=== PATIENT | female | born 1925 | race Caucasian/White ===

== ENCOUNTER 2016-12-08 17:41 | Inpatient (IN) | payer MEDICARE ==
--- NOTE | ~2016-12-08 | EKG ---
PATIENT: MICHELLE ROBERTS UNIT #: [id number] Ventricular Rate: 64 BPM Atrial Rate: 64 BPM P-R Interval: 214 ms QRS Duration: 94 ms Q-T Interval: 460 ms QTC Calculation(Bezet): 474 ms P [place]: 86 degrees Calculated R [place]: -32 degrees Calculated T [place]: 39 degrees Diagnosis Line: Sinus rhythm with 1st degree A-V block Diagnosis Line: Left axis deviation Diagnosis Line: Inferior infarct (cited on or before 17-SEP-2013) Diagnosis Line: Abnormal ECG Diagnosis Line: When compared with ECG of 18-MAY-2016 14:22, Diagnosis Line: No significant change was found Diagnosis Line: Confirmed by SHI MARQUEZ MD ([id number]) on Diagnosis Line: 12/09/2016 4:35:40 PM INTERPRETING MD: ALMA EID
--- NOTE | ~2016-12-08 | HP ---
Unit #: [id number] #: [id number] Patient: MICHELLE ROBERTS [id number] [address] [place], [place] [address] [id number] I MR#: [id number] NAME: MICHELLE ROBERTS. ROOM: 97911 Age: 89 Sex: F Admission Date: 12/08/2016 : 1925 Attending Physician: Amira Rankin M.D. Primary Care Physician: Michael Bergman M.D. HISTORY AND PHYSICAL CHIEF COMPLAINT The abnormal labs. HISTORY OF PRESENT ILLNESS The patient is an 89-year-old female with a history of coronary artery disease status post drug-eluting stent, history of paroxysmal atrial fibrillation on aspirin and Plavix, chronic kidney disease stage 3, who presented to the emergency room with abnormal labs. The patient stated the patient has been coughing with the shortness of breath since Thursday. The patient was seen by the PCP, Dr. Fisher, earlier today and with x-ray concerning for the pneumonia. The patient is sent to the emergency room for further evaluation. The patient had a chest x-ray that shows a bilateral coarse interstitial infiltrate and is being admitted for the pneumonia. The patient also complains of the nausea and denies any vomiting, denies any fever and chills. The patient's daughter is sick with a cold at home. PAST MEDICAL HISTORY History of coronary artery disease, DVT, history of a CVA, hypertension, hyperlipidemia, paroxysmal atrial fibrillation, hypothyroidism, lung nodules, hiatal hernia. PAST SURGICAL HISTORY History of cholecystectomy, cardiac cath, left breast lumpectomy, hysterectomy, right breast lumpectomy, bilateral cataract extraction, upper endoscopy. ALLERGIES Codeine. SOCIAL HISTORY The patient's a year ago and she has been living with her grandchildren, no history of smoking, alcohol or any illicit drugs. FAMILY HISTORY Mother at the age of 99, father at the age of 75 with MIs. HOME MEDICATIONS She is on the baby aspirin, sodium bicarbonate, isosorbide, Lipitor, carvedilol, amiodarone, folic acid, levothyroxine, Plavix and nitroglycerin. REVIEW OF SYMPTOMS Unit #: [id number] #: [id number] Patient: MICHELLE ROBERTS Fourteen-point review of symptoms performed and only pertinent positive findings as described above, remaining are negative. PHYSICAL EXAMINATION GENERAL APPEARANCE: On examination the patient is lying on a bed not in acute distress. VITAL SIGNS: Temperature is 98.4, pulse 56, respiratory rate 18, blood pressure 128/80, sating 98% in the emergency room but patient was 88% at the office. HEENT: Head atraumatic, normocephalic. Pupils equal, round and reacting to light and accommodation. Extraocular movements are intact. LUNGS: Decreased air entry at the bases. Positive for rhonchi. HEART: Irregular rate and rhythm. Positive for murmur. ABDOMEN: Soft. Positive bowel sounds. EXTREMITIES: No cyanosis. No clubbing. NEUROLOGIC: Alert, awake, oriented. No gross focal motor deficit. DIAGNOSTIC STUDIES LABORATORY DATA: Glucose 112, BUN 31, creatinine 2.1, sodium 130, potassium 4.8, chloride 94, bicarb 27, calcium 8.6, total protein 7.6, albumin 2.4, total bilirubin 0.4, AST 38, ALT 44, alkaline phosphatase 108 and BNP is 184, and lactic acid is 0.9, INR is 1, WBC 13.1, hemoglobin 9.9, hematocrit 30.5, platelets 373 and UA is pending. CARDIOVASCULAR: EKG shows sinus rhythm with the first-degree AV block and left axis deviation. IMAGING: Chest x-ray shows bilateral coarse interstitial infiltrate. ASSESSMENT 1. Pneumonia, bilateral. 2. Hyponatremia. 3. Chronic kidney disease with the stage 3. 4. Hypoxia, sats at 88% at room air. PLAN 1. Plan to admit the patient to the inpatient with the telemetry. 2. Continue with the IV antibiotic with Rocephin and Zithromax. 3. Check the sputum culture. 4. Check the urine Strep and Legionella antigen. 5. Continue with gentle fluid, 60 mL per hour normal saline for 10 hours and repeat labs again in the morning and further recommendations will follow. Dictated by Emmanuel Servin TD: 12/08/2016 20:23 JOB #: [id number] Unit #: [id number] #: [id number] Patient: MICHELLE ROBERTS Melisa HISTORY AND PHYSICAL Page 1 of 1 X X HISTORY AND PHYSICAL
--- NOTE | ~2016-12-08 | CR72 ---
[facility] A Service of [facility] & [facility] RADIOLOGY TEXT RESULTS PATIENT: MICHELLE ROBERTS LOCATION: [facility] 301- : [birth year] UNIT #: [id number] AGE: [address]: Dev Willett MD SEX: F ORDER DR: [id number] [facility] [address] [place], [place] [address] [id number] I MR#: [id number] Acc #: [id number] NAME: MICHELLE ROBERTS. : 1925 SEX: F STUDY DATE/TIME: 12/08/2016 17:27 [facility]123 STUDY DESCRIPTION: CR Chest Single View Portable Attending Physician: Amira Rankin M.D. Ordering Physician: Aarti Campuzano M.D. Primary Care Physician: Michael Bergman M.D. MEDICAL IMAGING REPORT This report is preliminary unless electronic signature is present EXAM Portable chest HISTORY Cough and shortness of air congestion for 3 days. FINDINGS Moderate diffuse bilateral coarse interstitial infiltrates appear increased compared to earlier today. No new focal pulmonary infiltrates. Cardiac and mediastinal contours are stable. Dictated by... Ignacio Gonsalez M.D. THIS IS AN ELECTRONICALLY VERIFIED REPORT Ignacio Gonsalez M.D. at 12/09/2016 2:40 PM ABBIE/jonna TD: 12/08/2016 21:00 JOB #: [id number] MEDICAL IMAGING REPORT Page 1 of 1 COPY
--- NOTE | ~2016-12-08 | DS ---
Unit #: [id number] #: [id number] Patient: MICHELLE ROBERTS [id number] [address] [place], [place] [address] [id number] I MR#: [id number] NAME: MICHELLE ROBERTS. ROOM: 301 Age: 89 Sex: F Admission Date: 12/08/2016 : 1925 Discharge Date: 12/11/2016 Attending Physician: Beltran Finnegan M.D. Primary Care Physician: Michael Bergman M.D. DISCHARGE SUMMARY ADMITTING DIAGNOSES 1. Community-acquired pneumonia. 2. History of coronary artery disease. 3. History of atrial fibrillation on aspirin and Plavix. 4. Chronic kidney disease stage 3. DISCHARGE DIAGNOSES 1. Community-acquired pneumonia. 2. History of coronary artery disease. 3. History of atrial fibrillation on aspirin and Plavix. 4. Chronic kidney disease stage 3. HISTORY OF PRESENT ILLNESS The patient is a pleasant 89-year-old lady who lives at home with her granddaughter with multiple medical problems including coronary artery disease status post stent, paroxysmal atrial fibrillation, chronic kidney disease who presented to the emergency room with a chief complaint of cough and shortness of breath. She initially had a chest x-ray which was concerning for an infiltrate and for further evaluation, she was admitted here. Apparently, her daughter is sick and patient had a sick contact at home. HOSPITAL COURSE She was started on antimicrobial agents including Rocephin and Zithromax. Clinically, she started to feel better. We offered her to go to rehab. The patient refused. Her renal function is at her baseline and we are requesting her to follow with nephrology as an outpatient. Dr. Hamilton is her die maker trim. Her atrial fibrillation is rate controlled. Today, I spoke with patient and her granddaughter in the room. She is eager to go home and does not want (1) . PHYSICAL EXAMINATION On the day of the discharge, her physical examination: VITAL SIGNS: Temperature 98.2, pulse rate 60, respirations 16, blood pressure 108/52. GENERAL: Patient is alert, oriented x3, lying in the bed in no acute distress. HEENT: Normocephalic and atraumatic. No icterus. PERRLA. Extraocular muscles intact. NECK: Supple. No JVD. HEART: S1, S2. Irregular. CHEST: Bilateral equal air entry. Clear to auscultation. ABDOMEN: Soft, nontender. EXTREMITIES: No edema. Normal peripheral pulses. Unit #: [id number] #: [id number] Patient: MICHELLE ROBERTS DISCHARGE MEDICATIONS 1. Zithromax 250 mg p.o. daily for three more days. 2. Albuterol 90 mcg inhalation one to two puffs q.4-6 p.r.n. for shortness of breath. 3. Sodium bicarbonate 650 mg p.o. three times a day. 4. Amiodarone 200 mg p.o. daily. 5. Coreg 6.25 mg twice a day. 6. Lipitor 10 mg at bedtime. 7. Aspirin 81 mg daily. 8. Plavix 75 mg daily. 9. Synthroid 75 mcg p.o. daily. 10. Imdur 30 mg p.o. daily. 11. Nitroglycerin 0.4 mg sublingual p.r.n. for chest pain. 12. Folic acid 1 mg p.o. daily. FOLLOWUP She is instructed to follow with her primary care, nephrology, and cardiology as an outpatient. Total time spent in her care, 35 minutes. Dictated by... Beltran Finnegan M.D. Сергей TD: 12/13/2016 10:51 JOB #: [id number] DISCHARGE SUMMARY Page 1 of 1 X X DISCHARGE SUMMARY
[2016-12-08 17:28] LABS: BASOPHIL# 0.1 X10e3 (0-0.3); BASOPHIL% 0.7 % (0-2.5); EOSINOPHIL# 0.2 X10e3 (0-0.7); EOSINOPHIL% 1.8 % (0.0-7.0); HEMATOCRIT 30.5 % (35.0-45.0); HEMOGLOBIN 9.9 gm/dL (12.0-16.0); LYMPHOCYTE# 5.2 X10e3 (1.0-3.5); LYMPHOCYTE% 39.5 % (17.0-45.0); MEAN CELL VOLUME 93.1 FL (83-96); MEAN CORPUSCULAR HEMOGLOBIN 30.3 PG (28-34); MEAN CORPUSCULAR HGB CONC 32.6 g/dL (30-36); MEAN PLATELET VOLUME 7.2 FL (6.5-11.5); MONOCYTE# 1.3 X10e3 (0-1.0); MONOCYTE% 9.7 % (3.0-12.0); NEUTROPHIL# 6.3 X10e3 (1.5-7.1); NEUTROPHIL% 48.3 % (40-75); PLATELET COUNT 373 X10e3 (140-420); RED BLOOD COUNT 3.28 X10e (3.90-5.30); RED CELL DISTRIBUTION WIDTH 13.6 % (11.0-15.5); WHITE BLOOD COUNT 13.1 X10e3 (4.0-10.5)
[2016-12-08 17:30] LABS: DIFF IND NO
[2016-12-08 17:41] LABS: PARTIAL THROMBOPLASTIN TIME 24.9 SECONDS (23.5-31.3); PROTHROMBIN TIME (PATIENT) 10.6 SECONDS (9.6-11.5)
[~2016-12-08 17:41] MED LIST: ACETAMINOPHEN325 MG PO; AMIODARONE PO; ANTACID650 MG PO; ASPIRIN81 M1 PO; ASPIRIN81 M2 PO; ASPIRIN81 MG PO; ATORVASTATIN CA10 MG PO; AZITHROMYCIN500 MG PO; B-121000 MC1 SUBQ; B-121000 MC3 PO; BAYER CHEWABLE81 MG PO; CLOPIDOGREL75 MG PO; CORDARONE200 M1 PO; COREG3.125 M1 PO; COREG3.125 MG PO; COUMADIN1 MG PO; COUMADIN2.5 MG PO; DIGOX0.125 MG PO; DIGOXIN125 MCG PO; EVISTA60 M1 PO; FERROUS GL324 ( 38 ) PO; FLORINEF0.1 MG PO; FOLIC ACID1 MG PO; IMDUR-ER30 M2 PO; IRON1 TAB PO; IRON325 ( 651 PO; ISOSORBIDE DINI30 MG PO; LASIX PO; LASIX20 MG PO; LEVOTHYROXINE75 MC1 PO; LEVOTHYROXINE75 MCG PO; LISINOPRIL20 MG PO; LOVENOX40 MG/0.4 INJ; LOW DOSE ASPIRI81 M1 PO; METOPROLOL SUCC25 MG PO; METOPROLOL TAR25 MG PO; METOPROLOL TART25 MG PO; NITROGLYGERIN0.4 MG SL; NITROSTAT0.4 MG SL; OMNICEF PO; PANTOPRAZOLE SO40 MG PO; PLAVIX PO; PRAVASTATIN SOD40 MG PO; PROAMATINE10 MG PO; PROTONIX PO; SENNA8.6 M2 PO; SODIUM BICARBO650 MG PO; SYNTHROID75 MCG PO; TYLENOL325 M1 PO; VITAMIN B12-FO1 EACH PO; XARELTO15 MG PO
[2016-12-08 17:55] LABS: ALBUMIN SERUM 2.4 g/dL (3.5-5.0); BILIRUBIN, DIRECT 0.1 mg/dL (0.0-0.2); BILIRUBIN,INDIRECT 0.3 mg/dL (0.0-0.9); BILIRUBIN,TOTAL 0.4 mg/dL (0.2-2.0); BUN/CREATININE RATIO 14.76; CALCIUM SERUM 8.6 mg/dL (8.4-10.2); CREATININE SERUM 2.1 mg/dL (0.6-1.4); GLOM FILT RATE Estimated 20.4 mL/min (>60); POTASSIUM 4.8 mmol/L (3.5-5.1); PROTEIN TOTAL SERUM 7.6 g/dL (6.0-8.3)
[2016-12-08 20:03] LABS: URINE SOURCE CLEAN CATCH
[2016-12-08 20:16] LABS: URINE APPEARANCE CLEAR; URINE BLOOD NEG (NEG); URINE COLOR DK YELLOW; URINE GLUCOSE NEG (NEG); URINE KETONE TRACE (NEG); URINE LEUKOCYTE ESTERASE 2+ (NEG); URINE NITRATE NEG (NEG); URINE PROTEIN 1+ (NEG); URINE SPECIFIC GRAVITY 1.022 (1.003-1.035)
[2016-12-08 20:19] LABS: CULTURE INDICATED? YES; URINE BACTERIA AUWI NEG (NEGATIVE); URINE SQUAMOUS EPITHELIAL CELL NONE SEEN /[HPF]; UWBCS1 AUWI 50-100 (0-5)
[2016-12-08 20:21] LABS: URINE BILIRUBIN NEG (NEG)
[2016-12-08] MEDS ORDERED: SODIUM BICARBO650 MG PO (22:01)
[2016-12-08] MEDS ORDERED: CLOPIDOGREL75 MG PO (22:02)
[2016-12-08] MEDS ORDERED: NITROGLYCERIN0.4 MG SL (22:03)
[2016-12-09 04:59] LABS: HEMATOCRIT 29.9 % (35.0-45.0); HEMOGLOBIN 9.8 gm/dL (12.0-16.0); MEAN CELL VOLUME 93.6 FL (83-96); MEAN CORPUSCULAR HEMOGLOBIN 30.8 PG (28-34); MEAN CORPUSCULAR HGB CONC 32.9 g/dL (30-36); MEAN PLATELET VOLUME 7.4 FL (6.5-11.5); RED BLOOD COUNT 3.19 X10e (3.90-5.30); RED CELL DISTRIBUTION WIDTH 13.9 % (11.0-15.5); WHITE BLOOD COUNT 10.8 X10e3 (4.0-10.5)
[2016-12-09 06:32] LABS: CALCIUM SERUM 8.2 mg/dL (8.4-10.2); CREATININE SERUM 1.8 mg/dL (0.6-1.4); GLOM FILT RATE Estimated 24.5 mL/min (>60); POTASSIUM 4.5 mmol/L (3.5-5.1)
[2016-12-09 10:11] LABS: LEGIONELLA AG URINE NEG (NEG)
[2016-12-10 07:19] LABS: HEMATOCRIT 29.8 % (35.0-45.0); HEMOGLOBIN 9.8 gm/dL (12.0-16.0); MEAN CELL VOLUME 93.1 FL (83-96); MEAN CORPUSCULAR HEMOGLOBIN 30.5 PG (28-34); MEAN CORPUSCULAR HGB CONC 32.8 g/dL (30-36); MEAN PLATELET VOLUME 7.1 FL (6.5-11.5); RED BLOOD COUNT 3.2 X10e (3.90-5.30); RED CELL DISTRIBUTION WIDTH 13.5 % (11.0-15.5); WHITE BLOOD COUNT 13.6 X10e3 (4.0-10.5)
[2016-12-10 07:46] LABS: BUN/CREATININE RATIO 13.88; CALCIUM SERUM 8.1 mg/dL (8.4-10.2); CREATININE SERUM 1.8 mg/dL (0.6-1.4); GLOM FILT RATE Estimated 24.5 mL/min (>60); POTASSIUM 4.2 mmol/L (3.5-5.1)
[2016-12-10 07:55] LABS: PROCALCITONIN 0.15 NG/ML
[2016-12-11 06:11] LABS: HEMATOCRIT 27.3 % (35.0-45.0); HEMOGLOBIN 9.1 gm/dL (12.0-16.0); MEAN CELL VOLUME 92.7 FL (83-96); MEAN CORPUSCULAR HGB CONC 33.4 g/dL (30-36); MEAN PLATELET VOLUME 7.4 FL (6.5-11.5); RED BLOOD COUNT 2.94 X10e (3.90-5.30); RED CELL DISTRIBUTION WIDTH 13.7 % (11.0-15.5); WHITE BLOOD COUNT 8.8 X10e3 (4.0-10.5)
[2016-12-11 07:03] LABS: BUN/CREATININE RATIO 13.68; CALCIUM SERUM 8.3 mg/dL (8.4-10.2); CREATININE SERUM 1.9 mg/dL (0.6-1.4); POTASSIUM 4.1 mmol/L (3.5-5.1)
[2016-12-11] MEDS ORDERED: AZITHROMYCIN250 MG PO (16:16)
[2016-12-11] MEDS ORDERED: PROAIR RESPICL90 MCG INH (16:17)
== END 2016-12-11 17:07 | disposition home health service (06) | DRG 193 ==
LOC: CED 17:41 → CEDOF 19:03 → C3A PCU 21:51
PROVIDERS: Emergency Medicine; Internal Medicine
DX: J18.9 Pneumonia, unspecified organism (principal); J96.01 Acute respiratory failure with hypoxia; E87.1 Hypo-osmolality and hyponatremia; I48.0 Paroxysmal atrial fibrillation; N18.3 Chronic kidney disease, stage 3 (moderate); Z90.49 Acquired absence of other specified parts of digestive tract; Z90.710 Acquired absence of both cervix and uterus; Z86.718 Personal history of other venous thrombosis and embolism; E78.5 Hyperlipidemia, unspecified; I25.10 Atherosclerotic heart disease of native coronary artery without angina pectoris; E03.9 Hypothyroidism, unspecified; Z86.73 Personal history of transient ischemic attack (TIA), and cerebral infarction without residual deficits; Z98.42 Cataract extraction status, left eye; Z98.41 Cataract extraction status, right eye; Z88.5 Allergy status to narcotic agent; I12.9 Hypertensive chronic kidney disease with stage 1 through stage 4 chronic kidney disease, or unspecified chronic kidney disease; Z95.5 Presence of coronary angioplasty implant and graft
CPT/HCPCS: 36415; 71010; 80048; 80076; 81003; 82308; 83605; 83880; 85025; 85027; 85610; 85730; 87040; 87086; 87449; 87899; 92526; 92610; 93005; 94640; 94760; 96365; 99285; G8996-GN; G8997-GN; G8998-GN; J0456; J0696; J1650

== ENCOUNTER 2017-01-08 13:56 | Observation (INO) | payer MEDICARE ==
--- NOTE | ~2017-01-08 | MR18 ---
[facility] A Service of [facility] & [facility] RADIOLOGY TEXT RESULTS PATIENT: MICHELLE ROBERTS LOCATION: [facility] 335- : [birth year] UNIT #: [id number] AGE: [address]: ALICIA RANKIN MD SEX: F ORDER DR: [id number] [facility] [address] [place], [place] [address] [id number] I MR#: [id number] Acc #: [id number] NAME: MICHELLE ROBERTS. : 1925 SEX: F STUDY DATE/TIME: 01/08/2017 20:42 UNIT: A U ROOM: [facility] STUDY DESCRIPTION: MR Brain Wo Contrast Attending Physician: Alicia Rankin M.D. Ordering Physician: Physician Non-Staff Primary Care Physician: Michael Bergman M.D. MRI CENTER REPORT This report is preliminary unless electronic signature is present. EXAM MRI of the brain without HISTORY TIA. Patient fell this morning after becoming weak. She was assisted to the ground. History of previous stroke, but no history of cancer. COMMENT MRI of the brain was performed without contrast using routine 1.5T imaging technique. Comparison head CT is from 01/08/2017. There is no evidence for a recent ischemic insult on the diffusion series. Probably old blood product deposition at the left basal ganglia anteriorly. No recent intracranial hemorrhage is suspected. There is extensive white matter disease probably due to small vessel disease, and there are a few small areas of cortical signal abnormality probably also due to prior ischemic insult in light of the constellation of findings. These small cortical areas are seen in the left posterior frontal lobe predominantly. There is generalized atrophy. There is fluid or inflammatory change in the mastoid air cells bilaterally. Major intracranial flow voids are maintained. Vertebrobasilar system is somewhat small and there is probably an anterior-dominant circulation developmentally. There is no extraaxial fluid collection or intracranial mass effect. There is near-complete opacification of the left maxillary sinus, with evidence of chronic osteitis appreciated on the CT scan. There is partial opacification of left greater than right-sided ethmoid air cells and polypoid mucosal disease in the right maxillary sinus. Probably both acute and chronic sinusitis present. Patient has had cataract surgery bilaterally. There is some flattening of the right posterolateral margin of the globe, also apparent on the CT scan of uncertain significance clinically. Please correlate with ophthalmologic exam and history. [facility] A Service of [facility] / [facility] RADIOLOGY TEXT RESULTS PATIENT: MICHELLE ROBERTS LOCATION: [facility] 335- : [birth year] UNIT #: [id number] AGE: [address]: ALICIA RANKIN MD SEX: F ORDER DR: Old lacunar disease in the cerebellum on the right. IMPRESSION 1. There is no evidence for a recent ischemic insult on the diffusion imaging. 2. There is atrophy and extensive probable sequelae of small vessel disease. 3. There is fluid or inflammatory change in the mastoid air cells. 4. Paranasal sinus disease including near-complete opacification of the left maxillary sinus with evidence of chronic osteitis/chronic sinusitis. I suspect there are components of both acute and chronic sinusitis present. See above. STAT * RESULT Dictated by... Taya Odonnell M.D. THIS IS AN ELECTRONICALLY VERIFIED REPORT Taya Odonnell M.D. at 01/08/2017 10:35 PM SAC/psc TD: 01/08/2017 22:11 JOB #: [id number] MRI CENTER REPORT Page 1 of 1 COPY
--- NOTE | ~2017-01-08 | EKG ---
PATIENT: MICHELLE ROBERTS UNIT #: [id number] Ventricular Rate: 48 BPM Atrial Rate: 48 BPM P-R Interval: 210 ms QRS Duration: 90 ms Q-T Interval: 504 ms QTC Calculation(Bezet): 450 ms Calculated R [place]: -27 degrees Calculated T [place]: 32 degrees Diagnosis Line: Sinus bradycardia with 1st degree A-V block Diagnosis Line: Borderline ECG Diagnosis Line: When compared with ECG of 08-DEC-2016 17:16, Diagnosis Line: No significant change was found Diagnosis Line: Confirmed by SVETLANA LUBIN MD ([id number]) on Diagnosis Line: 01/10/2017 1:08:51 PM INTERPRETING MD: BROOKE
--- NOTE | ~2017-01-08 | CR72 ---
[facility] A Service of [facility] & [facility] RADIOLOGY TEXT RESULTS PATIENT: MICHELLE ROBERTS LOCATION: [place] [address] : [birth year] UNIT #: [id number] AGE: [address]: Natacha Corrales MD SEX: F ORDER DR: [id number] [facility] [address] [place], [place] [address] [id number] E MR#: [id number] Acc #: [id number] NAME: MICHELLE ROBERTS. : 1925 SEX: F STUDY DATE/TIME: 01/08/2017 14:30 UNIT: [facility] ROOM: STUDY DESCRIPTION: CR Chest Single View Portable Attending Physician: Richie Cuevas M.D. Ordering Physician: Richie Cuevas M.D. Primary Care Physician: Michael Bergman M.D. MEDICAL IMAGING REPORT This report is preliminary unless electronic signature is present EXAM Portable chest HISTORY SUPPLIED Right-sided weakness, shortness of breath. FINDINGS AP portable view is obtained. Heart size is mildly enlarged. Lungs show evidence of chronic interstitial lung disease. No acute infiltrates are suspected. There is marked apical pleural thickening and there extensive granulomatous calcifications. CONCLUSION 1. Mild cardiac enlargement 2. Marked chronic interstitial lung disease Dictated by... Timoteo Mckenzie M.D. THIS IS AN ELECTRONICALLY VERIFIED REPORT Timoteo Mckenzie M.D. at 01/09/2017 6:06 PM GISELA/jonathan TD: 01/08/2017 17:41 JOB #: [id number] MEDICAL IMAGING REPORT Page 1 of 1 COPY
--- NOTE | ~2017-01-08 | DS ---
Unit #: [id number] #: [id number] Patient: MICHELLE ROBERTS [id number] [address] [facility]. [place], [place] [address] [id number] I MR#: [id number] NAME: MICHELLE ROBERTS. ROOM: 335 Age: 89 Sex: F Admission Date: 01/08/2017 : 1925 Discharge Date: 01/09/2017 Attending Physician: Natacha Corrales M.D. Primary Care Physician: Michael Bergman M.D. DISCHARGE SUMMARY HOSPITAL COURSE An 89-year-old female who was admitted to [facility] with right-sided weakness, which was resolved by the time she was seen in the emergency room. Details are as per admission H and P. Patient was seen by Dr. Eden in neurology consultation. She had a MRI of brain done, which did not reveal any evidence of acute ischemic insult. There was atrophy present and small vessel disease. Chest x-ray was also done which did reveal marked chronic interstitial lung disease. Patient's urinalysis has revealed 5-10 WBCs. Therefore, it was thought that patient has a TIA. The patient has been on Coumadin in past which was discontinued because of falls and bleeding, but patient had sinus bradycardia. After discussing with cardiology and neurology, it was decided to start patient on Eliquis 2.5 mg p.o. b.i.d. Patient was advised to follow further on outpatient basis. The patient's aspirin and Plavix were discontinued. Today patient is comfortable, is not in any acute distress. She will be discharged home. RECOMMENDATIONS ON DISCHARGE Condition is stable. Activity is as tolerated. MEDICATIONS 1. Albuterol MDI two puffs q.4 hours p.r.n. 2. Sodium bicarbonate 650 mg p.o. t.i.d. with meals. 3. Tylenol 650 mg p.o. q.6 hours p.r.n. 4. Megace 40 mg p.o. b.i.d. 5. Colace 100 mg p.o. daily p.r.n. 6. Lipitor 10 mg p.o. nightly. 7. Enteric coated aspirin 81 mg p.o. daily. 8. Synthroid 100 mcg p.o. daily. 9. Imdur 30 mg p.o. daily. 10. Folic acid 1 mg p.o. daily. 11. Keflex 250 mg p.o. b.i.d. for one week for urinary tract infection. DISPOSITION Patient will be discharged home. FOLLOWUP Follow with primary care physician in one week and have CBC and BMP done and with cardiology as recommended. The patient is advised to follow up with Dr. Peter Reyna in neurology in four weeks. Home health is advised to follow up regarding home PT/OT and home safety assessment. The plan has been discussed in detail with cardiology and neurology. The plan was also discussed with patient's granddaughter who stated that she feels Unit #: [id number] #: [id number] Patient: MICHELLE ROBERTS comfortable to bring patient home. Dictated by... Emmanuel Mondragon/stephane TD: 01/09/2017 15:11 JOB #: [id number] CC: Peter Reyna II., M.D. Michael Becker, M.D. Preeti Attavar, M.D. DISCHARGE SUMMARY Page 1 of 1 X Natacha Corrales MD X DISCHARGE SUMMARY
--- NOTE | ~2017-01-08 | CO ---
Unit #: [id number] #: [id number] Patient: MICHELLE ROBERTS [id number] [address] [place], [place] [address] [id number] I MR#: [id number] NAME: MICHELLE ROBERTS. ROOM: 335 Age: 89 Sex: F Admission Date: 01/08/2017 : 1925 Attending Physician: Natacha Corrales M.D. Primary Care Physician: Michael Bergman M.D. Consultation Date: 01/09/2017 CONSULTATION REPORT REASON FOR CONSULTATION Bradycardia. HISTORY OF PRESENT ILLNESS This is an 86-year-old female known to Dr. Delcid with a prior medical history of coronary artery disease, status post PTCA and drug-eluting stents to LAD and RCA in August 2012 and cardiac cath done in November 2012 showed patent stents, a normal left circumflex, and 75% to 80% ramus intermedius branch occlusion. It was decided to proceed with medical management. In addition, she has a history of hypertension and hyperlipidemia, paroxysmal afib, chronic kidney disease, DVT, questionable CVA in 2009, and hypothyroidism. She has not been anticoagulated due to her treatment with Plavix and aspirin. The patient lives with her granddaughter, who helps provide her care. While ambulating to the bathroom with assistance she became very weak. Her granddaughter states that the right side of her face began to droop and her legs gave out. Patient was lowered to the floor and EMS was called. In the ER she was found to have bradycardia with a rate of 48 and first-degree AV block. CT of the head showed extensive old lacunar infarcts. Chest x-ray showed mild cardiomegaly with moderate diffuse bilateral infiltrates, consistent with her diagnosis of pneumonia approximately two weeks ago. An MRI of the head showed no recent ischemic events and generalized atrophy ad well as tlqku-xi-qrdykcz sinusitis. We were asked to see her to evaluate her for her bradycardia. The patient's granddaughter states she has been checking her heart rate regularly as well as home health services checking it. The patient's heart rate has been running in the 50s and she has only been receiving her Coreg about once a day because she holds it when her heart rate is less than 60. PAST MEDICAL HISTORY 1. Coronary artery disease, status post PTCA and drug-eluting stent to LAD and RCA in 08/2012. 2. Cardiac catheterization 11/2012 with patent stents, normal left circumflex, 75% to 80% ramus intermedius branch, medical management. 3. Hypertension. 4. Hyperlipidemia. 5. Paroxysmal atrial fibrillation. 6. Chronic kidney disease. 7. History of DVT. 8. History of CVA in 2009. 9. Hypothyroidism. 10. Recent pneumonia approximately two weeks ago. Unit #: [id number] #: [id number] Patient: MICHELLE ROBERTS 11. Lung nodule. 12. Echocardiogram August 2012 showed left ventricular ejection fraction 50% to 55% with left ventricular hypertrophy. 13. Nonsmoker. PAST SURGICAL HISTORY 1. Right and left breast lumpectomy. 2. Hysterectomy. 3. Cataract extraction. 4. Cholecystectomy. 5. Cardiac cath in 2012. SOCIAL HISTORY The patient lives with her granddaughter. She walks with assistance with a walker. She denies a history of illicit drug use or alcohol use, denies smoking. FAMILY HISTORY Mother at age 99. Father at age 75 from a myocardial infarction. ALLERGIES Codeine. HOME MEDICATIONS 1. Plavix 75 mg daily. 2. Aspirin 81 mg daily. 3. Sodium bicarbonate 650 mg t.i.d. 4. Docusate sodium 50 mg daily. 5. Coreg 3.125 mg b.i.d. 6. Albuterol two inhalations q.4-6 h. p.r.n. for shortness of breath. 7. Lipitor 10 mg q.h.s. 8. Synthroid 100 mcg p.o. daily. 9. Isosorbide mononitrate 30 mg p.o. daily. 10. Folic acid 1 mg p.o. daily. 11. Megestrol acetate 40 mg p.o. b.i.d. REVIEW OF SYSTEMS Positive for weakness; otherwise negative except for what was stated in the HPI. PHYSICAL EXAMINATION GENERAL: This is a pleasant, 89-year-old female resting in bed in no acute distress. VITAL SIGNS: Temperature 98.2, heart rate 63, blood pressure 103/53. Height 60 inches. Weight 52 kg. HEENT: Head is atraumatic and normocephalic. Pupils are equal and round. Mucous membranes are moist. NECK: Supple. Trachea is midline. Negative for JVD. LUNGS: Clear, diminished in bases. Nonlabored respirations. CARDIOVASCULAR: S1 and S2. Regular rate and rhythm. No murmurs, rubs or gallops. ABDOMEN: Soft, nontender, nondistended. EXTREMITIES: Pulses are palpable. No pedal edema. No cyanosis. NEUROLOGIC: Awake, alert and oriented x3, without focal weaknesses. DIAGNOSTIC STUDIES LABORATORY RESULTS: Sodium 135, potassium 4.1, chloride 102, BUN 29, Unit #: [id number] #: [id number] Patient: MICHELLE ROBERTS creatinine 2.2, glucose 80, hemoglobin 10.6, hematocrit 32.4, white blood cell count 8.9, platelets 289, PT 10.3, INR 1, point of care troponin less than 0.05. Urine culture is pending. Urine culture showed leukocyte esterase 1+. IMAGING: Chest x-ray showed moderate diffuse bilateral infiltrates with mild cardiomegaly. Head CT showed old lacunar infarcts and generalized atrophy. MRI of the head showed no recent ischemic insults, generalized atrophy, and acute and chronic sinusitis. ASSESSMENT 1. Transient ischemic attack. 2. Sinus bradycardia. 3. Chronic kidney disease. 4. Probable urinary tract infection. 5. History of paroxysmal atrial fibrillation. 6. Hypertension. 7. Hyperlipidemia. 8. Hypothyroidism. 9. History of deep veinous thrombosis. 10. Coronary artery disease, status post percutaneous transluminal coronary angioplasty and drug-eluting stent to left anterior descending and right coronary artery in August 2012 and 75% to 80% to ramus per catheterization November 2012. PLAN 1. We will discontinue Plavix. 2. Start Eliquis 2.5 mg p.o. b.i.d. 3. Twenty-four hour Holter monitor as outpatient to observe for further bradycardia or arrhythmias. 4. Continue to hold beta jf. 5. Check TSH. Thank you for asking us to see this patient. We appreciate the consult. Dictated by... JALEN Carrillo M.D. RB/cf TD: 01/09/2017 15:55 JOB #: [id number] Unit #: [id number] #: [id number] Patient: MICHELLE ROBERTS CONSULTATION REPORT Page 1 of 1 X X CONSULTATION REPORT
--- NOTE | ~2017-01-08 | CO ---
Unit #: [id number] #: [id number] Patient: MICHELLE ROBERTS [id number] [facility] [address] [facility]. [place], [place] [address] [id number] I MR#: [id number] NAME: MICHELLE ROBERTS ROOM: 335 Age: 89 Sex: A Admission Date: 01/08/2017 : 1925 Attending Physician: Natacha Corrales M.D. Primary Care Physician: Michael Bergman M.D. Consultation Date: 01/09/2017 CONSULTATION REPORT REASON FOR CONSULT TIA. PATIENT IDENTIFICATION This is an 89-year-old, right-handed, female evaluated in room 335 at [facility]. SOURCE OF INFORMATION Obtained from the patient, the patient's granddaughter at the bedside, as well as the medical record. Patient is a poor historian. HISTORY OF PRESENT ILLNESS This is an 89-year-old, right-handed, female with a past medical history of CVA in 2009 with reportedly no residual deficit, history of CAD with history of myocardial infarction reportedly in 2016 per the granddaughter and other medical issues as discussed below who presents to [facility] with right-sided weakness and mental status changes. Apparently, the patient was in her usual state of health on the day of admission. She lives with her granddaughter as she has baseline dementia and requires assistance with her normal daily activities of living. Her granddaughter states that she noticed that her right side of her face appeared to be a little bit asymmetric and weak. It looked as though it was drooping a little bit on the right side. She states that the patient had needed to go to the bathroom and she was helping her to get up with her walker to go to the bathroom. She states that this was whenever she noticed the facial drooping. However, the patient was still able to ambulate. She states that the patient was up with her walker and suddenly became weak on the right side. She states that she sort of just froze and on the right side she began to look as though it was "like Jell-O." She states that she was still holding onto the walker with her left hand, but was unable to do anything with her right side. She states that she was able to ease the patient to the floor preventing her from falling or hitting her head. She states that the patient did not lose control of bowel or bladder and actually was complaining of having to go to the bathroom after she was eased down to the floor. She states that the patient looked like she had lost "color" in her face. She states that she checked her vital signs and her heart rate was 52 and her blood pressure was 101/59. Patient does not recall much of what happened, but does have baseline dementia. The granddaughter states that she called EMS and was finally able to get the patient to agree to come to the hospital, though reports she was initially reluctant. She denies any obvious seizure activity and reports, rather, the patient was weak on the right Unit #: [id number] #: [id number] Patient: MICHELLE ROBERTS side as though the right side was "like Jell-O." She states that the patient had a similar episode about a year ago at Dr. Delcid's office in 2016 and about a week later, she had a myocardial infarction and this is reported as per the granddaughter at the bedside, who is her medical POA and primary caregiver. Upon arrival, she had a head CT done that showed no acute intracranial findings. She was found to be bradycardic with a heart rate of 55-56. She had a MRI of the brain done as well that was negative for any acute intracranial abnormality. It does show atrophy with quite extensive probable sequelae of small vessel disease. There is fluid or inflammatory change in the mastoid air cells and paranasal sinus disease including near complete opacification of the left maxillary sinus with evidence of chronic osteitis/chronic sinusitis with possible acute and chronic sinusitis present. Urinalysis did show 1+ leuks and 1+ bacteria with rare squamous cells. She was started on Rocephin and culture is pending. Patient is back to her baseline. Cardiology has evaluated the patient as well and is recommending that she be put on Eliquis given her history of paroxysmal atrial fibrillation and possible new transient ischemic attack. She does have a history of ischemic stroke. Per the patient's daughter, again, she appears to have pretty significant small vessel disease on MR imaging. PAST MEDICAL HISTORY 1. CAD. 2. DVT. 3. CVA in 2009 with reportedly no residual deficit. 4. Hypertension. 5. Hyperlipidemia. 6. Paroxysmal atrial fibrillation. She has been on warfarin in the past and follows with Dr. Delcid's office. Her granddaughter states that she was taken off warfarin when she had her myocardial infarction in 2015 when she had a drug-eluting stent placed and was required to be on aspirin and Plavix combination. She reports that she had trouble maintaining a therapeutic INR on warfarin prior to that and apparently had very labile INRs. 7. Hypothyroidism. 8. Lung nodules. 9. Hiatal hernia. 10. Cholecystectomy. 11. Cardiac catheterization. 12. Left breast lumpectomy. 13. Hysterectomy. 14. Right breast lumpectomy. 15. Bilateral cataract extraction. 16. Upper endoscopy. 17. Chronic kidney disease. Please note the patient's granddaughter states that the patient had a myocardial infarction and drug-eluting stent placed in 2015; however, looking at the records from cardiology, it looks as though this was done in 2012. FAMILY HISTORY Noncontributory given her stated age of 89 years. SOCIAL HISTORY The patient lives with her granddaughter who is she states is her medical Power of [employer] Operator Adjuster. She walks with assistance of a walker. She requires assistance with her normal daily activity of living according to the Unit #: [id number] #: [id number] Patient: MICHELLE ROBERTS granddaughter and actually lives with her. She has no known history of illicit drug use, alcohol abuse, or tobacco use. ALLERGIES Codeine. MEDICATIONS Home medications include: 1. Plavix. 2. Aspirin. 3. Sodium bicarbonate. 4. Docusate sodium. 5. Coreg. 6. Albuterol. 7. Lipitor. 8. Synthroid. 9. Isosorbide mononitrate. 10. Folic acid. 11. Megestrol acetate. REVIEW OF SYSTEMS Fourteen-point review of systems was done and pertinent positives are as discussed above, otherwise negative. PHYSICAL EXAMINATION VITAL SIGNS: Temperature 98.4 and she has been afebrile; pulse 58; respirations 16; blood pressure 129/55; oxygen saturation 100%; height 5 feet, 0 inches; and weight 115 pounds. NEUROLOGIC: Patient is awake. She is alert. She is oriented to person. She is oriented to place, but she is not oriented to time. She recognizes her granddaughter at the bedside. She is very hard of hearing. She follows simple commands. CRANIAL NERVES: She demonstrates full france of vision. Eyes are conjugate without ptosis or nystagmus. Extraocular movements are intact. Sensation of the face and scalp is intact. Strength of muscles of facial expression is intact. Hearing is intact to conversation, but she is hard of hearing. Tongue is midline. Unable to visualized uvula and palate. Head turning and shoulder shrug are unremarkable. NECK: Supple. MOTOR: She demonstrates decreased bulk and normal tone. Strength is equal, 5- out of 5 in the extremities. SENSORY: Intact. GAIT AND ROMBERG: Deferred. REFLEXES: Unable to elicit. Toes are equivocal. COORDINATION: No abnormalities seen. DIAGNOSTIC STUDIES IMAGING: CT of the head: Generalized atrophy, chronic ischemic change, chronic lacunar infarction, left basal ganglia and the external capsules bilaterally. Chronic paranasal sinus disease. MRI of the brain without contrast: Please see above. LABORATORY: TSH 0.45. Lipid profile shows a cholesterol of 149, triglycerides 83, LDL 93, and HDL 39. Sodium 135, potassium 4.1, chloride 102, CO2 24, glucose 80, BUN 29, creatinine 2.2, estimated GFR 19.2, and calcium 8.7. White blood cell count 8.9, hemoglobin 10.6, hematocrit 32.4, and platelet count 289. Troponin less than 0.05. Urinalysis, as Unit #: [id number] #: [id number] Patient: MICHELLE ROBERTS discussed above. PT 10.3, INR 1, and PTT 23.8. Glucose on arrival 79. IMPRESSION 1. Altered mental status with right-sided weakness, resolved. Consider possibility of transient ischemic attack. 2. Bradycardia. 3. Abnormal urinalysis, culture pending. Patient has been started on antibiotics by he primary physician. 4. History of CVA. 5. CAD. 6. History of paroxysmal atrial fibrillation. Anticoagulation restarted as per cardiology. PLAN MRI of the brain is unremarkable for any acute findings. She does have pretty extensive sequelae of small vessel disease. I had a very long discussion with the patient's granddaughter, her medical POA, as well as the patient at the bedside and provided extensive stroke education with the family and patient. I discussed with Dr. Delcid, the organic search lead, and also Dr Corrales, the hospital physician, and case was also discussed with Dr. Eden who is seeing the patient as well. We will treat the patient medically with Eliquis. She is already on aspirin. We will stop Plavix and Eliquis is recommended for stroke risk reduction given her history of atrial fibrillation. She is to follow up with Dr. Delcid as an outpatient for 24-hour Holter and that is being arranged by cardiology. She had a carotid ultrasound done in 2009 that was unremarkable. As part of a TIA/stroke workup, we recommend MR angiogram or CT angiogram. She is unable to undergo a CT angiogram given her chronic kidney disease and I discussed with the patient and her granddaughter at the bedside at length regarding doing further evaluation from a stroke standpoint. The patient's granddaughter and the patient agree and state that they do not want any further imaging done intracranially because if there was an abnormality, they do not want to consider any surgical intervention given her age and comorbidities. They, at this time, only want aggressive medical management. Therefore we will continue aggressive medical management with Eliquis and ASA (Aspirin) from a neurology and cardiac standpoint and we agree with above. Events are most concerning for transient ischemic attack and she certainly has risk factors. If further events occur, consider outpatient EEG evaluation, though the patient states that she does not believe that she lost awareness nor did she become incontinent; however, the patient is not fully reliable. Based on description of presentation by the granddaughter who witnessed the event, she appears to have had right-sided weakness that was transient. Again, recommendations are as discussed above. She is being discharged. Recommend that she follow up with Dr. Peter Reyna in 6-8 weeks for further followup. We did check a lipid profile and, given that her LDL is greater than 70, recommend that her Lipitor be increased to 40 mg daily for intensive statin therapy and that she have outpatient lab work done to monitor that. Otherwise, from a neurologic standpoint, she can be discharged. Case discussed with Dr. Eden and he agrees with above. Time spent coordinating care, discussing with patient and family management of patient's assessment and care plan is from 12:35 to 13:54. Dictated by... Gertrude Butterfield A.P.R.N. Unit #: [id number] #: [id number] Patient: MICHELLE ROBERTS TD: 01/10/2017 13:39 JOB #: [id number] CONSULTATION REPORT Page 1 of 1 X Gertrude Butterfield APRN CONSULTATION REPORT
--- NOTE | ~2017-01-08 | CT71 ---
[facility] A Service of [facility] RADIOLOGY TEXT RESULTS PATIENT: MICHELLE ROBERTS LOCATION: [facility] 335-01 : [birth year] UNIT #: [id number] AGE: [address]: Natacha Corrales MD SEX: F ORDER DR: [id number] [facility] [address] [place], [place] [address] [id number] MR#: [id number] Acc #: [id number] NAME: MICHELLE ROBERTS : 1925 SEX: F STUDY DATE/TIME: 01/08/2017 14:44 UNIT: [facility] ROOM: STUDY DESCRIPTION: CT Head Wo Contrast Attending Physician: Richie Cuevas M.D. Ordering Physician: Richie Cuevas M.D. Primary Care Physician: Michael Bergman M.D. MEDICAL IMAGING REPORT This report is preliminary unless electronic signature is present EXAM CT brain without contrast media 01/08/2017 COMPARISON STUDIES 05/01/2016 HISTORY SUPPLIED Right-sided weakness beginning this morning TECHNIQUE/COMPARISON Axial imaging of the brain was performed without contrast and compared to April. This CT exam was performed with one or more of the following radiation dose reduction techniques: automatic exposure control, adjustment of mA and/or kV according to patient size, and iterative reconstruction. FINDINGS The examination shows generalized enlargement ventricles and CSF-containing spaces. There is a focal area of infarction in the left basal ganglia near the area of the anterior limb of internal capsule, unchanged. There are several smaller chronic infarcts in the external capsule on the left and right. There is decreased attenuation throughout the periventricular regions in both hemispheres, stable. No mass lesions, mass effect, evidence of acute hemorrhage or edema. No intra or extraaxial fluid collections are seen. There is atherosclerotic calcifications in the carotid siphons. Patient does have chronic bilateral maxillary sinus disease. Additionally there is bilateral chronic ethmoid sinus disease. There is involvement of the left frontal sinus as well. CONCLUSION 1. Generalized atrophy [facility] A Service [facility] RADIOLOGY TEXT RESULTS PATIENT: MICHELLE ROBERTS [facility] [id number] [birth year] UNIT #: [id number] AGE: [address]: Natacha Corrales MD SEX: F ORDER DR: 2. Chronic ischemic change. 3. Chronic lacunar infarction in the left basal ganglia and in the external capsules bilaterally. 4. Chronic paranasal sinus disease. Dictated by... Timoteo Mckenzie M.D. THIS IS AN ELECTRONICALLY VERIFIED REPORT Timoteo Mckenzie M.D. at 01/09/2017 6:06 PM GISELA/jonathan TD: 01/08/2017 17:53 JOB #: [id number] MEDICAL IMAGING REPORT Page 1 of 1 COPY
--- NOTE | ~2017-01-08 | HP ---
Unit #: [id number] #: [id number] Patient: MICHELLE ROBERTS [id number] [address] [address] [id number] I MR#: [id number] NAME: MICHELLE ROBERTS. ROOM: 86232 Age: 89 Sex: F Admission Date: 01/08/2017 : 1925 Attending Physician: Alicia Rankin M.D. Primary Care Physician: Michael Bermgan M.D. HISTORY AND PHYSICAL CHIEF COMPLAINT Right-sided weakness. HISTORY OF PRESENT ILLNESS The patient is an 89-year-old female with history of coronary artery disease status post drug-eluting stent, history of paroxysmal atrial fibrillation on aspirin and Plavix, chronic kidney disease stage 3, who presented to the emergency room with right-sided weakness earlier. The patient was trying to go to the bathroom and was having weakness on the right side. Unable to loosen roving changer on the left hand. The patient was placed on the floor and EMS was called for the transfer. The whole episode lasted around a few minutes. The patient was recently discharged from the hospital two weeks ago with the diagnosis of pneumonia. The patient had a CT of the head that showed old lacunar infarcts in the basal ganglia and the external capsules and the patient was found to have bradycardia with a rate of 55 to 56. The patient was admitted for the above reasons. PAST MEDICAL HISTORY 1. History of coronary artery disease. 2. DVT. 3. History of CVA. 4. Hypertension. 5. Hyperlipidemia. 6. Paroxysmal atrial fibrillation. 7. Hypothyroidism. 8. Lung nodules. 9. Hiatal hernia. PAST SURGICAL HISTORY 1. History of cholecystectomy. 2. Cardiac cath. 3. Left breast lumpectomy. 4. Hysterectomy. 5. Right breast lumpectomy. 6. Bilateral cataract extraction. 7. Upper endoscopy. HOME MEDICATIONS 1. Aspirin. 2. Plavix. 3. Sodium bicarbonate. 4. Colace. 5. Coreg. Unit #: [id number] #: [id number] Patient: MICHELLE ROBERTS 6. Megace. 7. Folic acid. 8. Imdur. 9. Synthroid. 10. Lipitor. 11. Ventolin. ALLERGIES Codeine. SOCIAL HISTORY The patient's a year ago and she has been living with her grandchildren. No history of smoking, alcohol or illicit drug use or abuse. FAMILY HISTORY Reviewed and none. REVIEW OF SYSTEMS A 14-point review of systems performed and only pertinent positive findings are as described above, remaining are negative. PHYSICAL EXAMINATION VITAL SIGNS: Temperature 98.3, pulse 56, respiratory rate 20, blood pressure 140/58, saturating 96% at room air. GENERAL: Patient is lying on the bed not in acute distress. HEENT: Atraumatic, normocephalic. Pupils equal, round, and reactive to light and accommodation. Extraocular movements are intact. NECK: Supple. LUNGS: Decreased air entry at the bases. HEART: Regular rate and rhythm, bradycardic. ABDOMEN: Soft, positive bowel sounds. EXTREMITIES: No cyanosis, no clubbing. NEUROLOGIC: Alert, awake, oriented. No gross focal motor deficit. DIAGNOSTIC STUDIES LABORATORY: Glucose 77, BUN 33, creatinine 2.2, sodium 136, potassium 4.8, chloride 102, bicarb 28, calcium 8.8, total protein 7.4, albumin 2.4, AST 19, ALT 14, alkaline phosphatase 81. INR 1. WBC 10.5, hemoglobin 9.9, hematocrit 30.2, platelets 291, neutrophils 29.1, lymphocytes 58.7. UA shows 1+ leukocyte esterase and 5-10 urine rbc's and 1+ urine bacteria. IMAGING: CT of the head shows old lacunar infarct in the basal ganglia and the external capsules. ASSESSMENT AND PLAN 1. Transient ischemic attack. 2. Bradycardia. 3. Bacteria/probable urinary tract infection. PLAN 1. Admit to observation with telemetry. 2. Will start the patient on IV antibiotics with Rocephin. 3. Will have neurology consult. 4. Check MRI of the brain without contrast. 5. Cardiology consult as the patient was supposed to see Dr. Delcid on 01/23/2017 for the atrial fibrillation and with the bradycardia. 6. Repeat labs again in the morning. Unit #: [id number] #: [id number] Patient: MICHELLE ROBERTS 7. Further recommendations will follow. Dictated by Emmanuel Servin/teddy TD: 01/08/2017 20:05 JOB #: [id number] HISTORY AND PHYSICAL Page 1 of 1 X ALICIA RANKIN MD HISTORY AND PHYSICAL
[~2017-01-08 13:56] MED LIST changes: +AZITHROMYCIN250 MG PO; +NITROGLYCERIN0.4 MG SL; +PROAIR RESPICL90 MCG INH
[2017-01-08] MEDS ORDERED: CLOPIDOGREL75 MG PO (14:41)
[2017-01-08] MEDS ORDERED: ASPIRIN81 M2 PO (14:41)
[2017-01-08] MEDS ORDERED: SODIUM BICARBO650 MG PO (14:42)
[2017-01-08] MEDS ORDERED: COREG3.125 MG PO (14:44)
[2017-01-08] MEDS ORDERED: COL-RITE50 MG PO (14:44)
[2017-01-08] MEDS ORDERED: ALBUTEROL17 GM PO (14:45)
[2017-01-08] MEDS ORDERED: LIPITOR PO (14:45)
[2017-01-08] MEDS ORDERED: SYNTHROID PO (14:45)
[2017-01-08] MEDS ORDERED: MEGACE PO (14:46)
[2017-01-08] MEDS ORDERED: ISOSORBIDE MONO30 MG PO (14:46)
[2017-01-08] MEDS ORDERED: FOLIC ACID1 MG PO (14:46)
[2017-01-08] MEDS ORDERED: PATIENT'S PHARMACY (14:47)
[2017-01-08 14:55] LABS: BASOPHIL# 0.1 X10e3 (0-0.3); BASOPHIL% 0.5 % (0-2.5); EOSINOPHIL# 0.3 X10e3 (0-0.7); EOSINOPHIL% 3.1 % (0.0-7.0); HEMATOCRIT 30.2 % (35.0-45.0); HEMOGLOBIN 9.9 gm/dL (12.0-16.0); LYMPHOCYTE# 6.1 X10e3 (1.0-3.5); LYMPHOCYTE% 58.7 % (17.0-45.0); MEAN CELL VOLUME 93.1 FL (83-96); MEAN CORPUSCULAR HEMOGLOBIN 30.5 PG (28-34); MEAN CORPUSCULAR HGB CONC 32.8 g/dL (30-36); MEAN PLATELET VOLUME 7.6 FL (6.5-11.5); MONOCYTE# 0.9 X10e3 (0-1.0); MONOCYTE% 8.6 % (3.0-12.0); NEUTROPHIL% 29.1 % (40-75); PLATELET COUNT 291 X10e3 (140-420); RED BLOOD COUNT 3.24 X10e (3.90-5.30); RED CELL DISTRIBUTION WIDTH 13.8 % (11.0-15.5); WHITE BLOOD COUNT 10.5 X10e3 (4.0-10.5)
[2017-01-08 14:57] LABS: DIFF IND YES
[2017-01-08 15:03] LABS: POC - CKMB <1.0 ng/mL (0.0-7.9); POC - TROPONIN <0.05 ng/mL (<=0.05)
[2017-01-08 15:15] LABS: ALBUMIN SERUM 2.4 g/dL (3.5-5.0); ALKALINE PHOSPHATASE 81 U/L (32-92); ALT (SGPT) 14 U/L (10-40); AST (SGOT) 19 U/L (10-42); BILIRUBIN,TOTAL 0.3 mg/dL (0.2-2.0); BLOOD UREA NITROGEN 33 mg/dL (9-23); CALCIUM SERUM 8.8 mg/dL (8.4-10.2); CARBON DIOXIDE 28 mmol/L (22-31); CHLORIDE 102 mmol/L (100-111); CREATININE SERUM 2.2 mg/dL (0.6-1.4); GLOM FILT RATE Estimated 19.2 mL/min (>60); GLUCOSE FASTING 77 mg/dL (70-110); POTASSIUM 4.8 mmol/L (3.5-5.1); PROTEIN TOTAL SERUM 7.4 g/dL (6.0-8.3); SODIUM 136 mmol/L (135-145)
[2017-01-08 15:22] LABS: PARTIAL THROMBOPLASTIN TIME 23.8 SECONDS (23.5-31.3); PROTHROMBIN TIME (PATIENT) 10.3 SECONDS (9.6-11.5)
[2017-01-08 15:23] LABS: PLATELET ESTIMATE NORMAL (NORMAL)
[2017-01-08 15:24] LABS: BILIRUBIN, DIRECT <0.1 mg/dL (0.0-0.2); BILIRUBIN,INDIRECT 0.2 mg/dL (0.0-0.9)
[2017-01-08 16:46] LABS: URINE APPEARANCE CLEAR; URINE COLOR YELLOW; URINE SOURCE CLEAN CATCH
[2017-01-08 16:49] LABS: URINE LEUKOCYTE ESTERASE 1+ (NEG); URINE NITRATE NEG (NEG)
[2017-01-08 16:50] LABS: URINE BILIRUBIN NEG (NEG); URINE GLUCOSE NORM (NEG); URINE KETONE TRACE (NEG); URINE PROTEIN 1+ (NEG)
[2017-01-08 16:52] LABS: CULTURE INDICATED? YES; URINE BACTERIA AUWI 1+ (NEGATIVE); URINE BLOOD TRACE (NEG); URINE SQUAMOUS EPITHELIAL CELL RARE /[HPF]
[2017-01-08 17:36] LABS: POC - CKMB <1.0 ng/mL (0.0-7.9); POC - TROPONIN <0.05 ng/mL (<=0.05)
[2017-01-09 06:06] LABS: HEMATOCRIT 32.4 % (35.0-45.0); HEMOGLOBIN 10.6 gm/dL (12.0-16.0); MEAN CELL VOLUME 93.6 FL (83-96); MEAN CORPUSCULAR HEMOGLOBIN 30.6 PG (28-34); MEAN CORPUSCULAR HGB CONC 32.7 g/dL (30-36); MEAN PLATELET VOLUME 7.9 FL (6.5-11.5); RED BLOOD COUNT 3.47 X10e (3.90-5.30); WHITE BLOOD COUNT 8.9 X10e3 (4.0-10.5)
[2017-01-09 07:22] LABS: BUN/CREATININE RATIO 13.18; CALCIUM SERUM 8.7 mg/dL (8.4-10.2); CREATININE SERUM 2.2 mg/dL (0.6-1.4); GLOM FILT RATE Estimated 19.2 mL/min (>60); POTASSIUM 4.1 mmol/L (3.5-5.1)
[2017-01-09 14:48] LABS: CHOLESTEROL 149 mg/dL (0-200); HDL CHOLESTEROL 39 mg/dL (35-95); LDL CHOLESTEROL 93 mg/dL (-130); LDL/HDL RATIO 2 RATIO (0-4); TRIGLYCERIDES 83 mg/dL (10-160)
[2017-01-09] MEDS ORDERED: ACETAMINOPHEN325 MG PO (15:40)
[2017-01-09] MEDS ORDERED: KEFLEX250 M1 PO (15:41)
[2017-01-09] MEDS ORDERED: LIPITOR40 MG PO (16:47)
[2017-01-09] MEDS ORDERED: ELIQUIS2.5 MG PO (16:55)
== END 2017-01-09 17:32 | disposition home or self-care (01) ==
LOC: CED 13:56 → CEDOF 18:01 → C3A PCU 18:01 → CEDOF 18:33 → CED 18:33 → C3A PCU 21:55 → CEDOF 21:55 → C3A PCU 21:55
PROVIDERS: Emergency Medicine; Internal Medicine; Nurse Practitioner
DX: G45.9 Transient cerebral ischemic attack, unspecified (principal); R00.1 Bradycardia, unspecified; R82.90 Unspecified abnormal findings in urine; I25.10 Atherosclerotic heart disease of native coronary artery without angina pectoris; Z86.73 Personal history of transient ischemic attack (TIA), and cerebral infarction without residual deficits; I48.0 Paroxysmal atrial fibrillation; Z86.718 Personal history of other venous thrombosis and embolism; Z79.02 Long term (current) use of antithrombotics/antiplatelets; Z79.82 Long term (current) use of aspirin; I12.9 Hypertensive chronic kidney disease with stage 1 through stage 4 chronic kidney disease, or unspecified chronic kidney disease; N18.9 Chronic kidney disease, unspecified; E78.5 Hyperlipidemia, unspecified; E03.9 Hypothyroidism, unspecified; Z95.5 Presence of coronary angioplasty implant and graft; Z79.01 Long term (current) use of anticoagulants; J32.0 Chronic maxillary sinusitis; Z90.49 Acquired absence of other specified parts of digestive tract
CPT/HCPCS: 36415; 51701; 70450; 70551; 71010; 80048; 80061; 80076; 81003; 82553; 82947; 84443; 84484; 85025; 85027; 85610; 85730; 87086; 93005; 96374; 99285; G0378; J0696